=== PATIENT | male | born 1970 | race Caucasian/White ===

== ENCOUNTER 2022-02-16 11:45 | Day surgery (SDC) | payer OTHER ==
[2022-02-15 11:20] LABS: BASOPHILS % (AUTO) 0.2 % (0-1); EOSINOPHILS # (AUTO) 0.2 X10'3 (0-0.9); EOSINOPHILS % (AUTO) 1.9 % (0-6); LYMPHOCYTES # (AUTO) 2.8 X10'3 (1.1-4.8); LYMPHOCYTES % (AUTO) 29.6 % (21-51); MEAN CORPUSCULAR HEMOGLOBIN 28.1 PG (27.0-31.0); MEAN CORPUSCULAR HGB CONC 33.1 g/dL (33.0-36.5); MEAN CORPUSCULAR VOLUME 84.8 FL (78-98); MEAN PLATELET VOLUME 8.1 FL (7.4-10.4); MONOCYTES # (AUTO) 0.6 X10'3 (0-0.9); MONOCYTES % (AUTO) 6.8 % (2-12); NEUTROPHILS # (AUTO) 5.8 X10'3 (1.8-7.7); NEUTROPHILS % (AUTO) 61.5 % (42-75); PRE OP HEMATOCRIT 41.8 % (42.0-52.0); PRE OP HEMOGLOBIN 13.8 g/dL (14.0-17.9); PRE OP PLATELET COUNT 282 X10'3 (140-440); RED BLOOD COUNT 4.92 X10'6 (4.70-6.10)
[2022-02-15 11:31] LABS: ALBUMIN 3.9 G/DL (3.4-5.0); ALKALINE PHOSPHATASE 54 IU/L (46-116); BLOOD UREA NITROGEN 13 MG/DL (7-18); BUN/CREATININE RATIO 17.6 (5.4-32.0); CALCIUM 8.7 MG/DL (8.5-10.1); CHLORIDE 107 MMOL/L (99-107); CREATININE 0.74 MG/DL (0.60-1.10); PRE OP ALT 26 U/L (30-65); PRE OP ANION GAP 9 (8-16); PRE OP AST 18 U/L (10-37); PRE OP BILIRUB, TOTAL 0.4 MG/DL (0.0-1.0); PRE OP GLUCOSE 99 MG/DL (70-104); PRE OP POTASSIUM 4.7 MMOL/L (3.4-5.1); PRE OP SODIUM 140 MMOL/L (135-145); TOTAL CARBON DIOXIDE 24.5 MMOL/L (24-32); eGFR > 90 ML/MIN
[2022-02-16] VITALS (9 sets, daily range): BP systolic 104–137; BP diastolic 67–81
[~2022-02-16] VITALS: Ht 177.8 cm; Wt 101.2 kg
[~2022-02-16 11:45] MED LIST: ACET-2119 PO; famotidine 20mg tablet PO ONE; meperidine/PF 25mg/ml syringe IV PRN; morphine 2 MG/ML inj. syringe IV PRN; morphine 4 MG/ML inj SYRINge IV PRN; ondansetron/PF 4mg/2ml inj IV PRN; proCHLORperazine 10 MG/2 ml inj IV PRN; ringers solution, lacted 1,000 ML IV SCH
[2022-02-16] MEDS ORDERED: glucagon, human recombinant 1mg kit ONE (12:39)
[2022-02-16] MEDS ORDERED: famotidine 20mg tablet PO ONE (12:53)
[2022-02-16] MEDS ORDERED: meperidine/PF 25mg/ml syringe IV ONE (12:55)
[2022-02-16] MEDS ORDERED: methylene blue (5mg/ml) 50mg/10ml ampul IV ONE (12:56)
[2022-02-16] MEDS ORDERED: BUPIVAcaine 0.5% inj/PF 30 ML ONE (12:56)
[2022-02-16] MEDS ORDERED: lidocaine 1%/epinephrine 1:100,000 inj. 50ml multi-dose vial ONE (12:56)
[2022-02-16] MEDS ORDERED: midazolam 1 mg/ML 2ml injection ONE (13:03)
[2022-02-16] MEDS ORDERED: fentaNYL /PF 50mcg/ml 5ml ampule ONE (13:03)
[2022-02-16] MEDS ORDERED: rocuronium 10mg/ml inj IV ONE (13:18)
[2022-02-16] MEDS ORDERED: propofol inj 20 ML IV ONE (13:18)
[2022-02-16] MEDS ORDERED: ondansetron/PF 4mg/2ml inj ONE (13:19)
[2022-02-16] MEDS ORDERED: BUPIVAcaine 0.5% inj/PF 30 ml vial IJ ONE (13:27)
--- NOTE | 2022-02-16 14:27 | NUR ---
Received from OR via , accompanied by Anesthesiologist DR GROSS and report given by Anesthesiolgist. AWAKENS TO VOICE. VITALS STABLE. DRESSING DI. JOSELIN PAIN.
--- NOTE | 2022-02-16 16:17 | NUR ---
AWAKE AND ORIENTED. VITALS STABLE. DRESSING DI. JOSELIN PAIN. HOME WITH HIS AT THIS TIME.
[2022-02-17] MEDS ORDERED: ringers solution, lacted 1,000 ML IV SCH (05:00)
== END 2022-02-16 16:17 | disposition home or self-care (01) ==
LOC: PAS 11:45
PROVIDERS: ATTEND Colon & Rectal Surgery
DX: R10.2 Pelvic and perineal pain (principal); K60.3 Anal fistula; K64.2 Third degree hemorrhoids; K63.5 Polyp of colon; D12.0 Benign neoplasm of cecum; K57.30 Diverticulosis of large intestine without perforation or abscess without bleeding; E66.9 Obesity, unspecified; Z68.32 Body mass index [BMI] 32.0-32.9, adult; Z79.899 Other long term (current) drug therapy; Z72.89 Other problems related to lifestyle; Z88.0 Allergy status to penicillin; Z87.891 Personal history of nicotine dependence; Z98.890 Other specified postprocedural states; F12.90 Cannabis use, unspecified, uncomplicated; Z87.442 Personal history of urinary calculi; Z20.822 Contact with and (suspected) exposure to COVID-19
CPT/HCPCS: 36415; 45380; 46020; 80053; 82948; 85025; 87635; 93005; A6223; C9803; J2175; J2250; J2405; J2704; J3010; J3490; J7030; J7120; Q9968; S0020; Z7506; Z7508; Z7512; A4215; A4402; A4618; A7000; J1610

== ENCOUNTER 2022-05-21 05:21 | Day surgery (SDC) | payer OTHER ==
[~2022-05-21] VITALS: Ht 210 cm; Wt 95.3 kg
[2022-05-21] VITALS (9 sets, daily range): BP systolic 111–126; BP diastolic 66–76
[~2022-05-21 05:21] MED LIST changes: -famotidine 20mg tablet PO ONE; -meperidine/PF 25mg/ml syringe IV PRN; -morphine 2 MG/ML inj. syringe IV PRN; -morphine 4 MG/ML inj SYRINge IV PRN; -ondansetron/PF 4mg/2ml inj IV PRN; -proCHLORperazine 10 MG/2 ml inj IV PRN
[2022-05-21] MEDS ORDERED: famotidine 20mg tablet PO ONE (05:30)
[2022-05-21] MEDS ORDERED: LIDOcaine 1% (10mg/ml) 2ml vial ONE (05:53)
[2022-05-21 07:05] LABS: BASOPHILS % (AUTO) 0.4 % (0-1); EOSINOPHILS # (AUTO) 0.3 X10'3 (0-0.9); EOSINOPHILS % (AUTO) 3.7 % (0-6); HEMATOCRIT 43.2 % (42.0-52.0); HEMOGLOBIN 14.3 g/dl (14.0-17.9); LYMPHOCYTES # (AUTO) 2.3 X10'3 (1.1-4.8); LYMPHOCYTES % (AUTO) 27.4 % (21-51); MEAN CORPUSCULAR HEMOGLOBIN 28.4 PG (27.0-31.0); MEAN CORPUSCULAR HGB CONC 33.1 g/dL (33.0-36.5); MEAN CORPUSCULAR VOLUME 85.9 FL (78-98); MEAN PLATELET VOLUME 8.8 FL (7.4-10.4); MONOCYTES # (AUTO) 0.7 X10'3 (0-0.9); MONOCYTES % (AUTO) 8.1 % (2-12); NEUTROPHILS # (AUTO) 5.1 X10'3 (1.8-7.7); NEUTROPHILS % (AUTO) 60.4 % (42-75); PLATELET COUNT 214 X10'3 (140-440); RED BLOOD COUNT 5.03 X10'6 (4.70-6.10); RED CELL DISTRIBUTION WIDTH 13.9 % (11.5-14.5); WHITE BLOOD COUNT 8.5 X10'3 (4.5-11.0)
[2022-05-21] MEDS ORDERED: morphine 4 MG/ML inj SYRINge IV PRN (07:10)
[2022-05-21] MEDS ORDERED: ringers solution, lacted 1,000 ML IV SCH (07:10)
[2022-05-21] MEDS ORDERED: fentaNYL/PF 50MCG/1 ML 2ML syringe IV PRN ×2 (07:10)
[2022-05-21] MEDS ORDERED: hydrALAZINE 20mg/ml inj. IV PRN (07:10)
[2022-05-21] MEDS ORDERED: ondansetron/PF 4mg/2ml inj IV PRN (07:10)
[2022-05-21] MEDS ORDERED: morphine 2 MG/ML inj. syringe IV PRN (07:10)
[2022-05-21] MEDS ORDERED: labetalol 20mg/4ml (5mg/ml) syringe IV PRN (07:10)
[2022-05-21 07:12] LABS: ALANINE AMINOTRANSFERASE 29 U/L (12-78); ALBUMIN 3.6 G/DL (3.4-5.0); ALBUMIN/GLOBULIN RATIO 0.9 (1.1-1.5); ALKALINE PHOSPHATASE 53 IU/L (46-116); ANION GAP 10 (8-16); ASPARTATE AMINO TRANSFERASE 20 U/L (10-37); BILIRUBIN,TOTAL 0.3 MG/DL (0.1-1.0); BLOOD UREA NITROGEN 13 MG/DL (7-18); BUN/CREATININE RATIO 15.9 (5.4-32.0); CALCIUM 8.6 MG/DL (8.5-10.1); CHLORIDE 107 MMOL/L (99-107); CREATININE 0.82 MG/DL (0.60-1.10); GLUCOSE 101 MG/DL (70-104); POTASSIUM 4.2 MMOL/L (3.5-5.1); SODIUM 141 MMOL/L (135-145); TOTAL CARBON DIOXIDE 24.3 MMOL/L (24-32); TOTAL PROTEIN 7.5 G/DL (6.4-8.2); eGFR > 90 ML/MIN
[2022-05-21] MEDS ORDERED: LIDOcaine 1% W/epiNEPHrine 1:100,000 20ml vial ONE (08:37)
[2022-05-21] MEDS ORDERED: methylene blue (5mg/ml) 50mg/10ml ampul IV ONE (08:37)
[2022-05-21] MEDS ORDERED: BUPIVAcaine/PF 2.5mg/ml (0.25%) 10ml vial ONE (08:38)
[2022-05-21] MEDS ORDERED: fentaNYL/PF 50MCG/1 ML 2ML syringe ONE (08:43)
[2022-05-21] MEDS ORDERED: midazolam 1 mg/ML 2ml injection ONE (08:43)
[2022-05-21] MEDS ORDERED: LIDOcaine 1%/PF 5ML 10 MG/ML VIAL ONE (08:44)
[2022-05-21] MEDS ORDERED: ondansetron/PF 4mg/2ml inj ONE (08:44)
[2022-05-21] MEDS ORDERED: propofol inj 20 ML IV ONE (08:44)
[2022-05-21] MEDS ORDERED: desflurane 240ml liquid inh. IH ONE (08:45)
[2022-05-21] MEDS ORDERED: neostigmine methylsulfate 1 MG/ML 10ml vial ONE (08:45)
[2022-05-21] MEDS ORDERED: glycopyrrolate 0.2mg/ml inj ONE (08:45)
[2022-05-21] MEDS ORDERED: dexamethasone sod phosphate 10mg/ml inj ONE (08:45)
[2022-05-21] MEDS ORDERED: rocuronium 10mg/ml inj IV ONE (08:45)
--- NOTE | 2022-05-21 09:24 | NUR ---
Received from OR via [facility], accompanied by Anesthesiologist and report given by SHALA Anesthesiologist. PATIENT WAKING UP, DENIES PAIN, V/S WNL, 20G TO LUE, PERIANAL DRESSING SITE CLEAN W/ NO S/S OF COMPLICATIONS. Addendum: 05/21/22 at 0945 by Reggie Saini RN Amended: Links added.
--- NOTE | 2022-05-21 10:34 | NUR ---
ALL DISCHARGE CRITERIA HAS BEEN MET. VSS, PAIN AT A TOLERABLE LEVEL, ABLE TO SAFELY AMBULATE AND TRANSFER SELF. IV TAKEN OUT WITHOUT ANY COMPLICATIONS. ALL DISCHARGE INSTRUCTIONS COVERED WITH PATIENT AND ALL QUESTIONS ANSWERED. PATIENT TAKEN OUT VIA WHEELCHAIR TO PERSONAL VEHICLE WHERE FAMILY DROVE PATIENT HOME. Addendum: 05/21/22 at 1102 by Reggie Saini RN Amended: Links added.
== END 2022-05-21 10:34 | disposition home or self-care (01) ==
LOC: PAS 05:21
PROVIDERS: ATTEND Colon & Rectal Surgery
DX: K60.3 Anal fistula (principal); Z98.890 Other specified postprocedural states; Z88.0 Allergy status to penicillin; Z87.442 Personal history of urinary calculi; Z72.89 Other problems related to lifestyle; Z79.899 Other long term (current) drug therapy
CPT/HCPCS: 36415; 46030; 46275; 80053; 85025; J1100; J2250; J2405; J2704; J2710; J3010; J3490; J7030; J7120; Z7506; Z7512; A4215; A4402; A4618; A6449; A7000; Q9968